=== PATIENT | female | born 1950 | race Caucasian/White ===

== ENCOUNTER 2016-07-23 14:16 | Outpatient (CLI) | payer MEDICARE ==
[2016-07-23 15:13] LABS: Hemoglobin A1c 9.8 % (4.0-6.0)
[2016-07-23 15:14] LABS: ALT (SGPT) 31 U/L (0-55); AST (SGOT) 37 U/L (5-34); Albumin 3.8 g/dL (3.4-4.8); Alkaline Phosphatase 93 U/L (40-150); Anion Gap 17 mmol/L (10-20); BUN (Urea Nitrogen) 11 mg/dL (9.8-20.1); Bilirubin, Total 0.7 mg/dL (0.2-1.2); Calc. Creatinine Clearance 0 mL/min (70-130); Calcium 10.2 mg/dL (7.8-10.44); Carbon Dioxide 19 mmol/L (23-31); Cardiac Risk 5.6 (Less than 4.5); Chloride 107 mmol/L (98-107); Cholesterol 223 mg/dL (< 200 Desired); Estimated GFR-MDRD 38; Globulin 3.1 g/dL (2.4-3.5); Glucose 244 mg/dL (80-115); HDL Cholesterol 40 mg/dL (>60 Neg Risk); LDL Cholesterol, Calculated 143 mg/dL; Potassium 4.1 mmol/L (3.5-5.1); Protein, Total 6.9 g/dL (5.8-8.1); Sodium 139 mmol/L (136-145); Triglycerides 198 mg/dL (Less than 150)
[2016-07-24 17:03] LABS: Creatinine, Urine 309.7 mg/dL (47-110)
[2016-07-24 17:06] LABS: Microalbumin Urine 81.2 mg/dL (0.5-50.0); Microalbumin/Creat Ratio 262.2 mg/g (Less than 30)
== END 2016-07-23 14:17 | disposition home or self-care (01) ==
LOC: MADLABBHPM 14:16
PROVIDERS: ATTEND Family Medicine
DX: E78.2 Mixed hyperlipidemia (principal); E11.9 Type 2 diabetes mellitus without complications
CPT/HCPCS: 36415; 80053; 80061; 82043; 83036

== ENCOUNTER 2016-11-23 15:12 | Outpatient (CLI) | payer MEDICARE ==
[2016-11-23 15:53] LABS: ALT (SGPT) 49 U/L (8-55); AST (SGOT) 49 U/L (5-34); Albumin 3.9 g/dL (3.4-4.8); Alkaline Phosphatase 91 U/L (40-150); Anion Gap 14 mmol/L (10-20); BUN (Urea Nitrogen) 24 mg/dL (9.8-20.1); Bilirubin, Total 0.7 mg/dL (0.2-1.2); Calc. Creatinine Clearance 0 mL/min (70-130); Calcium 10.1 mg/dL (7.8-10.44); Carbon Dioxide 21 mmol/L (23-31); Chloride 106 mmol/L (98-107); Estimated GFR-MDRD 37; Globulin 4.8 g/dL (2.4-3.5); Glucose 237 mg/dL (80-115); Potassium 4.4 mmol/L (3.5-5.1); Protein, Total 8.7 g/dL (6.0-8.3); Sodium 137 mmol/L (136-145)
== END 2016-11-23 15:13 | disposition home or self-care (01) ==
LOC: MADLABBHPM 15:12
PROVIDERS: ATTEND Family Medicine
DX: E11.9 Type 2 diabetes mellitus without complications (principal); E03.9 Hypothyroidism, unspecified
CPT/HCPCS: 36415; 80053; 83036; 84443

== ENCOUNTER 2019-07-19 10:19 | Outpatient (CLI) | payer MEDICARE ==
[2019-07-19 11:08] LABS: ALT (SGPT) 20 U/L (8-55); AST (SGOT) 25 U/L (5-34); Albumin 3.7 g/dL (3.4-4.8); Alkaline Phosphatase 82 U/L (40-110); Anion Gap 12 mmol/L (10-20); BUN (Urea Nitrogen) 21 mg/dL (9.8-20.1); Bilirubin, Total 0.5 mg/dL (0.2-1.2); Calc. Creatinine Clearance 0 mL/min (70-130); Calcium 9.7 mg/dL (7.8-10.44); Carbon Dioxide 26 mmol/L (23-31); Cardiac Risk 4.7 (Less than 4.5); Chloride 109 mmol/L (98-107); Cholesterol 196 mg/dl (< 200 Desired); Estimated GFR-MDRD 41; Globulin 3.4 g/dL (2.4-3.5); Glucose 70 mg/dL (80-115); HDL Cholesterol 42 mg/dL (>60 Neg Risk); LDL Cholesterol, Calculated 125 mg/dL; Potassium 3.9 mmol/L (3.5-5.1); Protein, Total 7.1 g/dL (6.0-8.3); Sodium 143 mmol/L (136-145); Triglycerides 147 mg/dL (Less than 150)
[2019-07-19 18:24] LABS: Hemoglobin A1c 8.5 % (4.0-6.0)
== END 2019-07-19 10:20 | disposition home or self-care (01) ==
LOC: MADLABBHPM 10:19
PROVIDERS: ATTEND Family Medicine
DX: E78.2 Mixed hyperlipidemia (principal); E11.9 Type 2 diabetes mellitus without complications; E03.9 Hypothyroidism, unspecified
CPT/HCPCS: 36415; 80053; 80061; 83036; 84443

== ENCOUNTER 2021-11-11 17:36 | Outpatient (CLI) | payer MEDICARE ==
[2021-11-11 18:38] LABS: ALT (SGPT) 29 U/L (8-55); AST (SGOT) 37 U/L (5-34); Albumin 3.7 g/dL (3.4-4.8); Alkaline Phosphatase 77 U/L (40-110); Anion Gap 17 mmol/L (10-20); BUN (Urea Nitrogen) 17 mg/dL (9.8-20.1); Bilirubin, Total 0.7 mg/dL (0.2-1.2); Calc. Creatinine Clearance 0 mL/min (70-130); Calcium 10.2 mg/dL (7.8-10.44); Carbon Dioxide 23 mmol/L (23-31); Cardiac Risk 4.8 (Less than 4.5); Chloride 105 mmol/L (98-107); Cholesterol 208 mg/dl (< 200 Desired); Estimated GFR 29; Globulin 3.6 g/dL (2.4-3.5); Glucose 231 mg/dL (83-110); HDL Cholesterol 43 mg/dL (>60 Neg Risk); LDL Cholesterol, Calculated 137 mg/dL; Potassium 4.3 mmol/L (3.5-5.1); Protein, Total 7.3 g/dL (5.8-8.1); Sodium 141 mmol/L (136-145); Triglycerides 141 mg/dL (Less than 150)
[2021-11-11 22:30] LABS: Hemoglobin A1c 7.5 % (4.0-6.0)
== END 2021-11-11 17:37 | disposition home or self-care (01) ==
LOC: MADLAB 17:36
PROVIDERS: ATTEND Family Medicine
DX: I11.9 Hypertensive heart disease without heart failure (principal); E11.29 Type 2 diabetes mellitus with other diabetic kidney complication; E03.9 Hypothyroidism, unspecified; E78.2 Mixed hyperlipidemia
CPT/HCPCS: 36415; 80053; 80061; 83036; 84443

== ENCOUNTER 2022-01-08 11:53 | Emergency (ER) | payer MEDICARE | END 2022-01-08 13:00 | disposition home or self-care (01) | LOC: MADERS 11:53 | DX: S80.01XA Contusion of right knee, initial encounter (principal); I10 Essential (primary) hypertension; W17.89XA Other fall from one level to another, initial encounter; Z79.82 Long term (current) use of aspirin; Z79.4 Long term (current) use of insulin; Z79.899 Other long term (current) drug therapy | CPT/HCPCS: 99283 ==

== ENCOUNTER 2022-01-19 13:10 | Inpatient (IN) | payer OTHER ==
[2022-01-19] MEDS ORDERED: Dextrose 50% Abboject 50 ML SYRINGE IVP PRN (17:15)
[2022-01-19] MEDS ORDERED: Dextrose 5% in Water 1,000 ML IV PRN (17:15)
[2022-01-19] MEDS: HumaLOG 300 UNITS/3 ML VIAL SC PRN (17:27)
[2022-01-19] MEDS: Nystatin Cream 15 GM TUBE TOP SCH (21:34)
[2022-01-19] MEDS: Metoprolol Tartrate 25 MG TAB PO SCH (21:34)
[2022-01-19] MEDS: Acetaminophen 500 MG TAB PO PRN (21:35)
[2022-01-19] MEDS: Lantus 1000 UNITS/10 ML VIAL SC SCH (21:36)
[2022-01-20] MEDS: Levothyroxine Sodium 88 MCG TAB PO SCH (06:07)
[2022-01-20 07:13] LABS: #Basophils 0.1 thou/uL (0.0-0.2); #Eosinphils 0.3 thou/uL (0.0-0.7); #Lymphocytes 1.4 thou/uL (1.20-3.40); #Monocytes 0.4 thou/uL (0.11-0.59); #Neutrophils 2.4 thou/uL (1.40-6.50); %Basophils 2.4 % (0.0-1.0); %Eosinophils 7.4 % (0.0-10.0); %Lymphocytes 29.1 % (21.0-51.0); %Monocytes 9.2 % (0.0-10.0); %Neutrophils 51.8 % (42.0-75.0); Hemoglobin 11.5 g/dL (12.0-16.0); Mean Corpuscular HGB CONC 31.8 g/dL (32.0-36.0); Mean Corpuscular Volume 100.7 fL (78.0-98.0); Mean Platelet Volume 9.7 fL (7.4-10.4); Platelet Count 161 thou/uL (130-400); RBC Distribution Width 12.6 % (11.5-14.5); Red Blood Cell (RBC) Count 3.58 mill/uL (4.20-5.40); White Blood Cell (WBC) Count 4.7 thou/uL (4.8-10.8)
[2022-01-20 07:35] LABS: ALT (SGPT) 33 U/L (8-55); AST (SGOT) 32 U/L (5-34); Albumin 3.1 g/dL (3.4-4.8); Alkaline Phosphatase 59 U/L (40-110); Anion Gap 12 mmol/L (10-20); BUN (Urea Nitrogen) 23 mg/dL (9.8-20.1); Bilirubin, Total 0.6 mg/dL (0.2-1.2); Calc. Creatinine Clearance 75 mL/min (70-130); Calcium 9.5 mg/dL (7.8-10.44); Carbon Dioxide 25 mmol/L (23-31); Chloride 108 mmol/L (98-107); Estimated GFR 40; Glucose 186 mg/dL (83-110); Potassium 4.1 mmol/L (3.5-5.1); Protein, Total 6.1 g/dL (5.8-8.1); Sodium 141 mmol/L (136-145)
[2022-01-20] MEDS: Venlafaxine XR 37.5 MG CAP PO SCH (08:39)
[2022-01-20] MEDS: Nystatin Cream 15 GM TUBE TOP SCH ×2 (08:40→20:22)
[2022-01-20] MEDS: Metoprolol Tartrate 25 MG TAB PO SCH ×2 (08:40→20:22)
[2022-01-20] MEDS: Lantus 1000 UNITS/10 ML VIAL SC SCH ×2 (08:40→20:21)
[2022-01-20] MEDS: Amlodipine 5 MG TAB PO SCH (08:40)
[2022-01-20] MEDS: Losartan Potassium 50 MG TAB PO SCH (08:40)
[2022-01-20] MEDS: Loratadine 10 MG TAB PO SCH (08:40)
[2022-01-20] MEDS: Fluticasone Propionate Nasal Spray 16 gm Bottle NASAL SCH (08:41)
[2022-01-20] MEDS: HumaLOG 300 UNITS/3 ML VIAL SC PRN ×3 (08:42→17:35)
[2022-01-20 12:12] VITALS: BMI 52.5
[2022-01-20] MEDS: Acetaminophen 500 MG TAB PO PRN (23:21)
[2022-01-21] MEDS: Levothyroxine Sodium 88 MCG TAB PO SCH (05:38)
[2022-01-21] MEDS: Nystatin Cream 15 GM TUBE TOP SCH ×2 (08:15→21:14)
[2022-01-21] MEDS: Losartan Potassium 50 MG TAB PO SCH (08:16)
[2022-01-21] MEDS: Lantus 1000 UNITS/10 ML VIAL SC SCH ×2 (08:16→21:13)
[2022-01-21] MEDS: Amlodipine 5 MG TAB PO SCH (08:16)
[2022-01-21] MEDS: Fluticasone Propionate Nasal Spray 16 gm Bottle NASAL SCH (08:16)
[2022-01-21] MEDS: Venlafaxine XR 37.5 MG CAP PO SCH (08:16)
[2022-01-21] MEDS: Metoprolol Tartrate 25 MG TAB PO SCH ×2 (08:16→21:11)
[2022-01-21] MEDS: Loratadine 10 MG TAB PO SCH (08:22)
[2022-01-21] MEDS: HumaLOG 300 UNITS/3 ML VIAL SC PRN ×3 (08:28→17:23)
[2022-01-21] MEDS: Acetaminophen 500 MG TAB PO PRN ×2 (15:43→21:11)
[2022-01-22] MEDS: Levothyroxine Sodium 88 MCG TAB PO SCH (05:55)
[2022-01-22] MEDS: Venlafaxine XR 37.5 MG CAP PO SCH (07:46)
[2022-01-22] MEDS: Fluticasone Propionate Nasal Spray 16 gm Bottle NASAL SCH (08:05)
[2022-01-22] MEDS: Metoprolol Tartrate 25 MG TAB PO SCH ×2 (08:06→21:10)
[2022-01-22] MEDS: Loratadine 10 MG TAB PO SCH (08:07)
[2022-01-22] MEDS: Amlodipine 5 MG TAB PO SCH (08:07)
[2022-01-22] MEDS: Lantus 1000 UNITS/10 ML VIAL SC SCH ×2 (08:07→21:07)
[2022-01-22] MEDS: Losartan Potassium 50 MG TAB PO SCH (08:07)
[2022-01-22] MEDS: HumaLOG 300 UNITS/3 ML VIAL SC PRN ×3 (08:08→21:08)
[2022-01-22] MEDS: Nystatin Cream 15 GM TUBE TOP SCH ×2 (08:11→21:10)
[2022-01-22] MEDS: Acetaminophen 500 MG TAB PO PRN (21:41)
[2022-01-23] MEDS: Levothyroxine Sodium 88 MCG TAB PO SCH (05:44)
[2022-01-23] MEDS: Amlodipine 5 MG TAB PO SCH (08:23)
[2022-01-23] MEDS: Venlafaxine XR 37.5 MG CAP PO SCH (08:24)
[2022-01-23] MEDS: Metoprolol Tartrate 25 MG TAB PO SCH ×2 (08:24→20:40)
[2022-01-23] MEDS: Nystatin Cream 15 GM TUBE TOP SCH ×2 (08:24→20:45)
[2022-01-23] MEDS: Losartan Potassium 50 MG TAB PO SCH (08:24)
[2022-01-23] MEDS: Lantus 1000 UNITS/10 ML VIAL SC SCH ×2 (08:24→20:41)
[2022-01-23] MEDS: Loratadine 10 MG TAB PO SCH (08:24)
[2022-01-23] MEDS: Fluticasone Propionate Nasal Spray 16 gm Bottle NASAL SCH (08:26)
[2022-01-23] MEDS: HumaLOG 300 UNITS/3 ML VIAL SC PRN ×3 (08:26→20:43)
[2022-01-23] MEDS: Acetaminophen 500 MG TAB PO PRN (20:40)
[2022-01-23] MEDS ORDERED: Calcium Carbonate 500 MG TAB PO SCH (21:00)
[2022-01-23] MEDS: Calcium Carbonate 500 MG ChewTAB PO SCH (21:41)
[2022-01-24] MEDS: Levothyroxine Sodium 88 MCG TAB PO SCH (05:36)
[2022-01-24] MEDS: Losartan Potassium 50 MG TAB PO SCH (08:35)
[2022-01-24] MEDS: Lantus 1000 UNITS/10 ML VIAL SC SCH ×2 (08:35→21:11)
[2022-01-24] MEDS: Metoprolol Tartrate 25 MG TAB PO SCH ×2 (08:35→21:11)
[2022-01-24] MEDS: Amlodipine 5 MG TAB PO SCH (08:35)
[2022-01-24] MEDS: Venlafaxine XR 37.5 MG CAP PO SCH (08:35)
[2022-01-24] MEDS: Loratadine 10 MG TAB PO SCH (08:35)
[2022-01-24] MEDS: Fluticasone Propionate Nasal Spray 16 gm Bottle NASAL SCH (08:36)
[2022-01-24] MEDS: HumaLOG 300 UNITS/3 ML VIAL SC PRN ×4 (08:36→21:11)
[2022-01-24] MEDS: Nystatin Cream 15 GM TUBE TOP SCH ×2 (08:37→21:17)
[2022-01-24] MEDS: Calcium Carbonate 500 MG ChewTAB PO SCH (21:10)
[2022-01-24] MEDS: Acetaminophen 500 MG TAB PO PRN (23:50)
[2022-01-25] MEDS: Levothyroxine Sodium 88 MCG TAB PO SCH (05:04)
[2022-01-25] MEDS: Losartan Potassium 50 MG TAB PO SCH (08:15)
[2022-01-25] MEDS: Venlafaxine XR 37.5 MG CAP PO SCH (08:15)
[2022-01-25] MEDS: Loratadine 10 MG TAB PO SCH (08:15)
[2022-01-25] MEDS: Amlodipine 5 MG TAB PO SCH (08:15)
[2022-01-25] MEDS: Metoprolol Tartrate 25 MG TAB PO SCH ×2 (08:15→21:06)
[2022-01-25] MEDS: Lantus 1000 UNITS/10 ML VIAL SC SCH ×2 (08:16→21:07)
[2022-01-25] MEDS: Fluticasone Propionate Nasal Spray 16 gm Bottle NASAL SCH (08:17)
[2022-01-25] MEDS: HumaLOG 300 UNITS/3 ML VIAL SC PRN ×4 (08:17→21:08)
[2022-01-25] MEDS: Nystatin Cream 15 GM TUBE TOP SCH ×2 (08:23→21:09)
[2022-01-25] MEDS: Acetaminophen 500 MG TAB PO PRN ×3 (09:00→21:16)
[2022-01-25] MEDS: Calcium Carbonate 500 MG ChewTAB PO SCH (21:06)
[2022-01-26] MEDS: Levothyroxine Sodium 88 MCG TAB PO SCH (05:18)
[2022-01-26] MEDS: Venlafaxine XR 37.5 MG CAP PO SCH (08:00)
[2022-01-26] MEDS: Amlodipine 5 MG TAB PO SCH (08:13)
[2022-01-26] MEDS: Metoprolol Tartrate 25 MG TAB PO SCH ×2 (08:13→21:02)
[2022-01-26] MEDS: Losartan Potassium 50 MG TAB PO SCH (08:13)
[2022-01-26] MEDS: Loratadine 10 MG TAB PO SCH (08:13)
[2022-01-26] MEDS: Fluticasone Propionate Nasal Spray 16 gm Bottle NASAL SCH (08:14)
[2022-01-26] MEDS: HumaLOG 300 UNITS/3 ML VIAL SC PRN ×4 (08:15→21:04)
[2022-01-26] MEDS: Lantus 1000 UNITS/10 ML VIAL SC SCH ×2 (08:15→21:03)
[2022-01-26] MEDS: Nystatin Cream 15 GM TUBE TOP SCH ×2 (08:18→21:03)
[2022-01-26] MEDS: Acetaminophen 500 MG TAB PO PRN ×2 (09:04→18:20)
[2022-01-26] MEDS: Calcium Carbonate 500 MG ChewTAB PO SCH (21:02)
[2022-01-27] MEDS: Levothyroxine Sodium 88 MCG TAB PO SCH (05:07)
[2022-01-27] MEDS: Venlafaxine XR 37.5 MG CAP PO SCH (07:53)
[2022-01-27] MEDS: HumaLOG 300 UNITS/3 ML VIAL SC PRN ×4 (07:54→21:36)
[2022-01-27] MEDS: Acetaminophen 500 MG TAB PO PRN ×3 (07:55→22:35)
[2022-01-27] MEDS: Metoprolol Tartrate 25 MG TAB PO SCH ×2 (07:59→21:36)
[2022-01-27] MEDS: Lantus 1000 UNITS/10 ML VIAL SC SCH ×2 (07:59→21:38)
[2022-01-27] MEDS: Amlodipine 5 MG TAB PO SCH (07:59)
[2022-01-27] MEDS: Losartan Potassium 50 MG TAB PO SCH (07:59)
[2022-01-27] MEDS: Loratadine 10 MG TAB PO SCH (07:59)
[2022-01-27] MEDS: Nystatin Cream 15 GM TUBE TOP SCH ×2 (08:00→21:38)
[2022-01-27] MEDS: Fluticasone Propionate Nasal Spray 16 gm Bottle NASAL SCH (08:00)
[2022-01-27] MEDS: Calcium Carbonate 500 MG ChewTAB PO SCH (21:36)
[2022-01-28] MEDS: Levothyroxine Sodium 88 MCG TAB PO SCH (05:34)
[2022-01-28] MEDS: Venlafaxine XR 37.5 MG CAP PO SCH (08:33)
[2022-01-28] MEDS: Loratadine 10 MG TAB PO SCH (08:34)
[2022-01-28] MEDS: Losartan Potassium 50 MG TAB PO SCH (08:34)
[2022-01-28] MEDS: Acetaminophen 500 MG TAB PO PRN ×3 (08:34→22:10)
[2022-01-28] MEDS: Metoprolol Tartrate 25 MG TAB PO SCH ×2 (08:34→21:28)
[2022-01-28] MEDS: Amlodipine 5 MG TAB PO SCH (08:34)
[2022-01-28] MEDS: Lantus 1000 UNITS/10 ML VIAL SC SCH ×2 (08:35→21:40)
[2022-01-28] MEDS: HumaLOG 300 UNITS/3 ML VIAL SC PRN ×4 (08:35→21:42)
[2022-01-28] MEDS: Fluticasone Propionate Nasal Spray 16 gm Bottle NASAL SCH (08:36)
[2022-01-28] MEDS: Nystatin Cream 15 GM TUBE TOP SCH ×2 (08:41→21:29)
[2022-01-28] MEDS: Calcium Carbonate 500 MG ChewTAB PO SCH (21:28)
[2022-01-29] MEDS: Levothyroxine Sodium 88 MCG TAB PO SCH (05:19)
[2022-01-29] MEDS: Fluticasone Propionate Nasal Spray 16 gm Bottle NASAL SCH (08:45)
[2022-01-29] MEDS: Acetaminophen 500 MG TAB PO PRN ×2 (08:46→20:39)
[2022-01-29] MEDS: Amlodipine 5 MG TAB PO SCH (08:46)
[2022-01-29] MEDS: Losartan Potassium 50 MG TAB PO SCH (08:46)
[2022-01-29] MEDS: Loratadine 10 MG TAB PO SCH (08:46)
[2022-01-29] MEDS: Venlafaxine XR 37.5 MG CAP PO SCH (08:46)
[2022-01-29] MEDS: Metoprolol Tartrate 25 MG TAB PO SCH ×2 (08:46→20:38)
[2022-01-29] MEDS: HumaLOG 300 UNITS/3 ML VIAL SC PRN ×3 (08:47→20:51)
[2022-01-29] MEDS: Lantus 1000 UNITS/10 ML VIAL SC SCH (08:48)
[2022-01-29] MEDS: Nystatin Cream 15 GM TUBE TOP SCH ×2 (08:51→20:38)
[2022-01-29] MEDS: Calcium Carbonate 500 MG ChewTAB PO SCH (20:38)
[2022-01-30] MEDS: Levothyroxine Sodium 88 MCG TAB PO SCH (05:44)
[2022-01-30] MEDS: Amlodipine 5 MG TAB PO SCH (08:33)
[2022-01-30] MEDS: Venlafaxine XR 37.5 MG CAP PO SCH (08:33)
[2022-01-30] MEDS: Loratadine 10 MG TAB PO SCH (08:33)
[2022-01-30] MEDS: Fluticasone Propionate Nasal Spray 16 gm Bottle NASAL SCH (08:33)
[2022-01-30] MEDS: Losartan Potassium 50 MG TAB PO SCH (08:33)
[2022-01-30] MEDS: Lantus 1000 UNITS/10 ML VIAL SC SCH (08:34)
[2022-01-30] MEDS: HumaLOG 300 UNITS/3 ML VIAL SC PRN ×4 (08:35→21:29)
[2022-01-30] MEDS: Metoprolol Tartrate 25 MG TAB PO SCH ×2 (08:36→21:27)
[2022-01-30] MEDS: Nystatin Cream 15 GM TUBE TOP SCH ×2 (08:37→21:27)
[2022-01-30] MEDS: Acetaminophen 500 MG TAB PO PRN ×2 (10:49→21:27)
[2022-01-30] MEDS: Calcium Carbonate 500 MG ChewTAB PO SCH (21:26)
[2022-01-31] MEDS: Levothyroxine Sodium 88 MCG TAB PO SCH (05:46)
[2022-01-31] MEDS: Amlodipine 5 MG TAB PO SCH (08:25)
[2022-01-31] MEDS: Venlafaxine XR 37.5 MG CAP PO SCH (08:25)
[2022-01-31] MEDS: Losartan Potassium 50 MG TAB PO SCH (08:26)
[2022-01-31] MEDS: Loratadine 10 MG TAB PO SCH (08:26)
[2022-01-31] MEDS: Metoprolol Tartrate 25 MG TAB PO SCH ×2 (08:26→20:54)
[2022-01-31] MEDS: Fluticasone Propionate Nasal Spray 16 gm Bottle NASAL SCH (08:26)
[2022-01-31] MEDS: Lantus 1000 UNITS/10 ML VIAL SC SCH (08:27)
[2022-01-31] MEDS: HumaLOG 300 UNITS/3 ML VIAL SC PRN ×4 (08:28→20:57)
[2022-01-31] MEDS: Acetaminophen 500 MG TAB PO PRN ×2 (08:29→20:54)
[2022-01-31] MEDS: Nystatin Cream 15 GM TUBE TOP SCH ×2 (08:33→20:56)
[2022-01-31] MEDS: Calcium Carbonate 500 MG ChewTAB PO SCH (20:54)
[2022-02-01] MEDS: Levothyroxine Sodium 88 MCG TAB PO SCH (05:45)
[2022-02-01] MEDS: Amlodipine 5 MG TAB PO SCH (08:00)
[2022-02-01] MEDS: Lantus 1000 UNITS/10 ML VIAL SC SCH (08:01)
[2022-02-01] MEDS: Losartan Potassium 50 MG TAB PO SCH (08:01)
[2022-02-01] MEDS: Loratadine 10 MG TAB PO SCH (08:01)
[2022-02-01] MEDS: Venlafaxine XR 37.5 MG CAP PO SCH (08:01)
[2022-02-01] MEDS: Metoprolol Tartrate 25 MG TAB PO SCH ×2 (08:01→20:35)
[2022-02-01] MEDS: HumaLOG 300 UNITS/3 ML VIAL SC PRN ×4 (08:02→21:01)
[2022-02-01] MEDS: Fluticasone Propionate Nasal Spray 16 gm Bottle NASAL SCH (08:02)
[2022-02-01] MEDS: Nystatin Cream 15 GM TUBE TOP SCH ×2 (08:04→20:37)
[2022-02-01] MEDS ORDERED: Meloxicam 7.5 MG TAB PO PRN (20:05)
[2022-02-01] MEDS: Calcium Carbonate 500 MG ChewTAB PO SCH (20:36)
[2022-02-02] MEDS: Levothyroxine Sodium 88 MCG TAB PO SCH (05:42)
[2022-02-02] MEDS: Fluticasone Propionate Nasal Spray 16 gm Bottle NASAL SCH (08:04)
[2022-02-02] MEDS: Metoprolol Tartrate 25 MG TAB PO SCH (08:05)
[2022-02-02] MEDS: Loratadine 10 MG TAB PO SCH (08:05)
[2022-02-02] MEDS: Amlodipine 5 MG TAB PO SCH (08:05)
[2022-02-02] MEDS: Losartan Potassium 50 MG TAB PO SCH (08:05)
[2022-02-02] MEDS: HumaLOG 300 UNITS/3 ML VIAL SC PRN ×3 (08:05→17:06)
[2022-02-02] MEDS: Nystatin Cream 15 GM TUBE TOP SCH (08:06)
[2022-02-02] MEDS: Venlafaxine XR 37.5 MG CAP PO SCH (08:11)
[2022-02-02] MEDS ORDERED: Lantus 1000 UNITS/10 ML VIAL SC SCH (09:00)
[2022-02-02] MEDS ORDERED: Meloxicam 7.5 MG TAB PO SCH (13:15)
[2022-02-02 19:02] VITALS: BP 123/81; TEMP 98.3
[2022-02-03] MEDS ORDERED: Meloxicam 7.5 MG TAB PO SCH (09:00)
== END 2022-02-02 19:02 | disposition home or self-care (01) | DRG 948 ==
LOC: MADMS 13:46
PROVIDERS: ADMIT Family Medicine; ATTEND Family Medicine
DX: R53.1 Weakness (principal); Z68.43 Body mass index [BMI] 50.0-59.9, adult; N17.9 Acute kidney failure, unspecified; R53.81 Other malaise; Z20.822 Contact with and (suspected) exposure to COVID-19; E78.5 Hyperlipidemia, unspecified; E03.9 Hypothyroidism, unspecified; Z60.2 Problems related to living alone; E66.01 Morbid (severe) obesity due to excess calories; I13.10 Hypertensive heart and chronic kidney disease without heart failure, with stage 1 through stage 4 chronic kidney disease, or unspecified chronic kidney disease; E11.65 Type 2 diabetes mellitus with hyperglycemia; N18.30 Chronic kidney disease, stage 3 unspecified; E11.22 Type 2 diabetes mellitus with diabetic chronic kidney disease; F41.9 Anxiety disorder, unspecified; F32.A Depression, unspecified; Z88.6 Allergy status to analgesic agent; Z88.1 Allergy status to other antibiotic agents; Z88.0 Allergy status to penicillin; Z79.899 Other long term (current) drug therapy; Z79.890 Hormone replacement therapy; Z79.4 Long term (current) use of insulin; Z90.49 Acquired absence of other specified parts of digestive tract; Z90.710 Acquired absence of both cervix and uterus
CPT/HCPCS: 36415; 36416; 80053; 85025; 87811; J1815

== ENCOUNTER 2024-06-27 16:37 | Emergency (ER) | payer MEDICARE, OTHER ==
[2024-06-27] MEDS ORDERED: Sodium Chloride 0.9% 2,000 ML ONE (17:43)
[2024-06-27 18:01] LABS: Anisocytosis SLIGHT = 6-15 cells (100X) (0-5/hpf); Band 16 % (5-11); Eosinophils 1 % (0-10); Hematocrit 36.6 % (36.0-47.0); Hypochromia SLIGHT = 6-15 cells (100X) (0-5/hpf); Lymphocytes 4 % (21-51); MDiff Complete? YES; Mean Corpuscular HGB CONC 32.8 g/dL (32.0-36.0); Mean Corpuscular Hemoglobin 32.1 pg (27.0-31.0); Mean Corpuscular Volume 97.8 fl (78.0-98.0); Mean Platelet Volume 7.5 fL (7.4-10.4); Monocytes 6 % (0-10); Neutrophil 72 % (42-75); Platelet Adequacy Comment Appears Adequate; Platelet Count 295 10x3/uL (130-400); Red Blood Cell (RBC) Count 3.74 mill/uL (4.20-5.40); White Blood Cell (WBC) Count 8.3 10x3/uL (4.8-10.8)
[2024-06-27 18:04] LABS: ALT (SGPT) 157 U/L (Less than 34); AST (SGOT) 198 U/L (11-34); Albumin 2.7 g/dL (3.1-4.5); Alkaline Phosphatase 137 U/L (40-110); Anion Gap 16 mmol/L (10-20); BUN (Urea Nitrogen) 36 mg/dL (9.8-20.1); Bilirubin, Total 0.7 mg/dL (0.3-1.2); CK (CPK) 521 U/L (29-168); Calc. Creatinine Clearance 0 mL/min (70-130); Calcium 9.7 mg/dL (7.8-10.44); Carbon Dioxide 15 mmol/L (23-31); Chloride 104 mmol/L (98-107); Estimated GFR 27; Globulin 4.7 g/dL (2.4-3.5); Glucose 362 mg/dL (83-110); Lipase 13 U/L (8-78); Protein, Total 7.4 g/dL (5.8-8.1); Sodium 131 mmol/L (136-145)
[2024-06-27 18:05] LABS: Base Excess-Venous -3.6 mmol/L (-2.0 to 3.0); Bicarbonate (HCO3v) 20.7 mmol/L (22.0-28.0); CO2 Tension (PvCO2) 34.4 mmHg (42.0-51.0); Calcium, Ionized 1.33 mmol/L (1.15-1.33); Chloride 103 mmol/L (98-107); Hemoglobin - Calc 14.3 g/dL (12.0-16.0); Potassium 4.1 mmol/L (3.5-5.1); Sodium 135 mmol/L (138-145); T. Carbon Dioxide 21.8 mmol/L (22.0-28.0); Troponin I 0.027 ng/mL (< 0.028); vO2 Saturation-calc 99.2 % (60.0-85.0)
[2024-06-27] MEDS ORDERED: Sodium Chloride 0.9% 1,000 ML ONE (22:00)
[2024-06-27] MEDS ORDERED: metroNIDAZOLE 500 MG (100 mL) BAG ONE (22:25)
[2024-06-27 23:01] LABS: Anion Gap 18 mmol/L (10-20); BUN (Urea Nitrogen) 37 mg/dL (9.8-20.1); Calc. Creatinine Clearance 0 mL/min (70-130); Calcium 9.9 mg/dL (7.8-10.44); Carbon Dioxide 16 mmol/L (23-31); Chloride 106 mmol/L (98-107); Estimated GFR 26; Glucose 287 mg/dL (83-110); Potassium 3.8 mmol/L (3.5-5.1); Sodium 136 mmol/L (136-145)
[2024-06-27 23:39] LABS: Bacteria/HPF 3+ HPF (None Seen); Bilirubin Small (Negative); Blood, Urine Small (Negative); CAUTI Indications for Culture Dysuria,urgency,freq; Clarity Cloudy (Clear); Glucose, Urine (Dipstick) 100 mg/dL (Negative); Ketone, Urine Trace mg/dL (Negative); Leukocyte Small (Negative); Nitrite Negative (Negative); Protein, Urine (Dipstick) 100 mg/dL (Neg-Trace); RBC/HPF None Seen HPF (0-3); Urobilinogen 0.2 mg/dL (Less than 2); WBC/HPF Greater than 50 HPF (0-3); pH, Urine 5.5 (5.0-9.0)
[2024-06-27 23:40] LABS: Urine Culture Reflex Yes Yes
[2024-06-28] MEDS ORDERED: Ciprofloxacin Lactate D5W 400 mg (200 mL) BAG ONE (00:49)
== END 2024-06-28 01:56 | disposition short-term general hospital (02) ==
LOC: MADERS 16:37
DX: E11.65 Type 2 diabetes mellitus with hyperglycemia (principal); K43.9 Ventral hernia without obstruction or gangrene; N17.9 Acute kidney failure, unspecified; E66.01 Morbid (severe) obesity due to excess calories; R19.7 Diarrhea, unspecified; E11.9 Type 2 diabetes mellitus without complications; I10 Essential (primary) hypertension; Z79.4 Long term (current) use of insulin; Z79.82 Long term (current) use of aspirin; Z79.899 Other long term (current) drug therapy
CPT/HCPCS: 36416; 74176; 80053; 81001; 82330; 82550; 82803; 83605; 83690; 84443; 84484; 85025; 87040; 87086; 96361; 96365; 96367; J0744; J7030

== ENCOUNTER 2024-12-31 09:40 | Outpatient (CLI) | payer OTHER ==
[2024-12-31 10:32] LABS: Albumin 3.6 g/dL (3.1-4.5); Anion Gap 17 mmol/L (10-20); BUN (Urea Nitrogen) 33 mg/dL (9.8-20.1); BUN/Creatinine Ratio 20.37; CK (CPK) 134 U/L (29-168); Calc. Creatinine Clearance 0 mL/min (70-130); Calcium 10.3 mg/dL (7.8-10.44); Carbon Dioxide 17 mmol/L (23-31); Chloride 110 mmol/L (98-107); Glucose 215 mg/dL (83-110); Potassium 4.2 mmol/L (3.5-5.1); Sodium 140 mmol/L (136-145)
== END 2024-12-31 09:41 | disposition home or self-care (01) ==
LOC: MADLAB 09:40
PROVIDERS: ATTEND Internal Medicine Nephrology
DX: N17.9 Acute kidney failure, unspecified (principal); E11.22 Type 2 diabetes mellitus with diabetic chronic kidney disease; N18.9 Chronic kidney disease, unspecified; E83.52 Hypercalcemia
CPT/HCPCS: 36415; 80069; 82550

== ENCOUNTER 2025-03-11 10:40 | Outpatient (CLI) | payer OTHER ==
[2025-03-11 11:15] LABS: ALT (SGPT) 34 U/L (Less than 34); AST (SGOT) 42 U/L (11-34); Albumin 3.8 g/dL (3.1-4.5); Alkaline Phosphatase 79 U/L (40-110); Anion Gap 14 mmol/L (10-20); BUN (Urea Nitrogen) 32 mg/dL (9.8-20.1); BUN/Creatinine Ratio 22.54; Bilirubin, Total 0.5 mg/dL (0.3-1.2); Calc. Creatinine Clearance 0 mL/min (70-130); Calcium 9.9 mg/dL (7.8-10.44); Carbon Dioxide 23 mmol/L (23-31); Cardiac Risk 2.8 (Less than 4.5); Chloride 108 mmol/L (98-107); Cholesterol 110 mg/dl (< 200 Desired); Globulin 3.5 g/dL (2.4-3.5); Glucose 100 mg/dL (83-110); Glucose, Urine (Dipstick) Negative (Negative); HDL Cholesterol 40 mg/dL (>60 Neg Risk); LDL Cholesterol, Calculated 50 mg/dL; Leukocyte Small (Negative); Potassium 4.5 mmol/L (3.5-5.1); Protein, Urine (Dipstick) Negative (Neg-Trace); Sodium 140 mmol/L (136-145); Specific Gravity, Urine 1.015 (1.005-1.030); Triglycerides 98 mg/dL (Less than 150)
[2025-03-11 11:22] LABS: Bacteria/HPF 2+ HPF (None Seen); RBC/HPF 0-3 HPF (0-3); WBC/HPF Greater Than 50 HPF (0-3)
[2025-03-11 11:29] LABS: Hematocrit 38.2 % (36.0-47.0); Hemoglobin 12.4 g/dL (12.0-16.0); MDiff Complete? YES; Macrocytosis SLIGHT = 6-15 cells (100X) (0-5/hpf); Mean Corpuscular Hemoglobin 32.8 pg (27.0-31.0); Mean Corpuscular Volume 100.6 fl (78.0-98.0); Platelet Adequacy Comment Appears Adequate; Platelet Count 192 10x3/uL (130-400); Red Blood Cell (RBC) Count 3.80 mill/uL (4.20-5.40); White Blood Cell (WBC) Count 5.7 10x3/uL (4.8-10.8)
== END 2025-03-11 10:41 | disposition home or self-care (01) ==
LOC: MADLAB 10:40
PROVIDERS: ATTEND Internal Medicine Nephrology
DX: I12.9 Hypertensive chronic kidney disease with stage 1 through stage 4 chronic kidney disease, or unspecified chronic kidney disease (principal); E11.22 Type 2 diabetes mellitus with diabetic chronic kidney disease; N18.30 Chronic kidney disease, stage 3 unspecified; E11.65 Type 2 diabetes mellitus with hyperglycemia; E03.9 Hypothyroidism, unspecified; E78.2 Mixed hyperlipidemia
CPT/HCPCS: 36415; 80053; 80061; 80069; 81001; 82043; 83036; 84443; 85025